=== PATIENT | male | born 2000 | race Caucasian/White ===

== ENCOUNTER → 2022-10-12 13:32 | Outpatient (BNVA) | payer MEDICAID, SELFPAY | PROVIDERS: PCP Family Medicine; Visit Provider Family Medicine | DX: F29 Unspecified psychosis not due to a substance or known physiological condition (principal); F31.9 Bipolar disorder, unspecified | CPT/HCPCS: 80053; 80061; 84443; 85025 ==

== ENCOUNTER 2024-07-25 18:39 | Inpatient (IN) | payer SELFPAY ==
[2024-07-25 18:42] VITALS: BP 157/75; PULSE 106; RESP 18; TEMP 36.8; O2SAT 98; BMI 30.7
--- NOTE | 2024-07-25 18:46 | ED.C_ITS ---
HPI - Psych 2 General: Chief Complaint: Psychiatric Symptoms Stated Complaint: 96 Time Seen by Provider: 07/25/24 18:42 History of Present Illness: 24-year-old male who presents the emerge ncy room with police on a 96-hour hold. According to oliva he was diagnosed recently with paranoid schizophrenia. He had been admitted at some point and a mental hospital in [facility]. He is been living with his grandparents since December 2021. They feel like his mental health has declined recently. They say never comes out of his room and he has bouts of yelling and screaming and threatening. These can last for hours. He said he has been hearing voices and talking to himself. When I asked him he says none of this is true. He says he was hoping to go home today. I discussed with him that he will need to stay he is completely fine with that. Related Data Previous Rx's Medication Instructions Recorded benztropine 1 mg tablet 1 mg PO BID #60 tabs 10/12/22 olanzapine 15 mg tablet 15 mg PO BID #60 tabs 10/12/22 risperidone 3 mg tablet (Risperdal) 3 mg PO BID #60 tabs 10/12/22 trazodone 150 mg tablet See Rx Instructions .Route 03/26/23 .COMPLEX #30 tabs Allergies Allergy/AdvReac Type Severity Reaction Status Date / Time No Known Allergies Allergy Verified 10/12/22 10:33 Review of Systems 2 Narrative: Constitutional symptoms: Negative except as documented in HPI. Skin symptoms: Negative except as documented in HPI. Eye symptoms: Negative except as documented in HPI. ENMT symptoms: Negative except as documented in HPI. Respiratory symptoms: Negative except as documented in HPI. Cardiovascular symptoms: Negative except as documented in HPI. Gastrointestinal symptoms: Negative except as documented in HPI. Genitourinary symptoms: Negative except as documented in HPI. Musculoskeletal symptoms: Negative except as documented in HPI. Neurologic symptoms: Negative except as documented in HPI. Psychiatric symptoms: Negative except as documented in HPI. Endocrine symptoms: Negative except as documented in HPI. PFSH ED 2 PFSH: Medical History (Updated 07/25/24 @ 19:58 by Becca Pope MD) Psychiatric disorder Bipolar 1 disorder Surgical History (Updated 10/12/22 @ 11:08 by Didi Bryant MD) No pertinent past surgical history Family History Family/Other Cancer CAD (coronary artery disease) Diabetes Stroke Psychiatric illness Mother Psychiatric illness Denies family history of Clotting disorder Bleeding disorder Social History Smoking and tobacco/nicotine status: current every day tobacco/nicotine user cigarettes Packs smoked per day: 1.5 Years cigarettes smoked: 5 Second hand smoke exposure: Yes Alcohol intake: never Substance/Drug Use: current Substance/Drug use frequency: daily Adopted: No Caregiver/support person: Yes Lives independently: No Household members: family Marital status: Single Highest education level completed: 11th Grade service: No Current occupational status: unemployed Current gender identity: Male Special brian needs: No Agree to transfusion: Yes Physical Exam 2 Narrative: EXAM NARRATIVE: General: Alert, no acute distress. Skin: Warm, dry. Head: Normocephalic, atraumatic. Neck: Supple, trachea midline. Eye: Extraocular movements are intact. Ears, nose, mouth and throat: mucosa moist. Cardiovascular: Regular, Normal peripheral perfusion. Respiratory: Lungs are clear to auscultation, respirations are non-labored, breath sounds are equal, Symmetrical chest wall expansion. Gastrointestinal: Soft, Nontender, Non distended Musculoskeletal: Normal ROM, no deformity. Neurological: Alert and oriented, No focal neurological deficit observed. Psychiatric: Cooperative, appropriate mood & affect. Course 2 Vital Signs: Vital signs: Vital Signs Temperature 98.3 F 07/25/24 18:42 Pulse Rate 106 H 07/25/24 18:42 Respiratory Rate 18 07/25/24 18:42 Blood Pressure 157/75 07/25/24 18:42 Pulse Oximetry 98 07/25/24 18:42 Oxygen Delivery Me thod Room Air 07/25/24 18:42 MDM - Psych Medical Decision Making Medical decision making: Differential diagnosis for patient with reported psychosis with plan for psychiatric admission including but not limited to and based on the above HPI, review of systems and physical exam: concerns for infection, alcohol intoxication, cardiac issues or other medical problems prior to psychiatric admission. Orders placed to evaluate differential diagnosis based on the above differential, HPI and physical exam labwork, ekg ordered to evaluate the pathologies and to clear the patient medically prior to psychiatric admission EKG: Time 1907. Rate 87. Normal sinus rhythm, No ST-T changes, no ectopy, normal MT & QRS intervals, This was reviewed and interpreted by myself the ER physician at 1910 Lab Review: Laboratory results were reviewed and interpreted by myself the emergency room physician. - Medically cleared. - EKG shows no ischemic changes. - Blood alcohol level is negative, as well as salicylate and Tylenol. -Urinalysis and drug screen are pending - No anemia. - BUN and creatinine are within normal limits. I reviewed the patient's medical record. Consultation: I spoke with Dr. Lazo is on-call for psychiatry and agrees to admission. Assessment and plan: Psychosis -Admission to neuropsychiatric unit for continued evaluation and treatment. - All lab work was reviewed and interpreted personally by myself, the ER physician - Evaluation and treatment of this problem were appropriate in the emergency setting Lab Data 07/25/24 18:54 07/25/24 18:54 Laboratory Results WBC 8.74 10^3/uL (3.29-11.43) 07/25/24 18:54 RBC 5.69 10^6/uL (3.85-5.65) H 07/25/24 18:54 Hgb 16.70 g/dL (11.27-16.99) 07/25/24 18:54 Hct 49.9 % (37-53) 07/25/24 18:54 MCV 87.7 fl (82-101) 07/25/24 18:54 MCH 29.3 pg (27-33) 07/25/24 18:54 MCHC 33.5 g/dL (30-55) 07/25/24 18:54 RDW 11.4 % (12.1-15.1) L 07/25/24 18:54 Plt Count 314 10^3/cmm (157-399) 07/25/24 18:54 MPV 9.6 fL (7.4-10.4) 07/25/24 18:54 Neut % (Auto) 73.2 % 07/25/24 18:54 Lymph % (Auto) 18.8 % 07/25/24 18:54 Rincon % (Auto) 6.6 % 07/25/24 18:54 Eos % (Auto) 0.5 % 07/25/24 18:54 Baso % (Auto) 0.6 % 07/25/24 18:54 Neut # (Auto) 6.40 10^3/uL (1.8-7.7) 07/25/24 18:54 Lymph # (Auto) 1.6 10^3/uL (0.8-4.8) 07/25/24 18:54 Rincon # (Auto) 0.6 10^3/uL (0.2-0.9) 07/25/24 18:54 Eos # (Auto) 0.0 10^3/uL (0.0-0.8) 07/25/24 18:54 Baso # (Auto) 0.1 10^3/uL (0.0-0.1) 07/25/24 18:54 Nucleated RBC % (auto) 0 % 07/25/24 18:54 Nucleated RBCs # 0.0 /100WBC 07/25/24 18:54 Sodium 140 mmol/L (136-145) 07/25/24 18:54 Potassium 3.5 mmol/L (3.5-5.1) 07/25/24 18:54 Chloride 100 mmol/L (98-107) 07/25/24 18:54 Carbon Dioxide 25 mmol/L (22-29) 07/25/24 18:54 Anion Gap 18.5 (5-19) 07/25/24 18:54 BUN 8 mg/dL (6-20) 07/25/24 18:54 Creatinine 0.9 mg/dL (0.7-1.2) 07/25/24 18:54 GFR Calculation 105.5 mL/min (90-130) 07/25/24 18:54 Glucose 105 mg/dL (65-115) 07/25/24 18:54 Calculated Osmolality 289 mOsm/kg (285-295) 07/25/24 18:54 Calcium 9.9 mg/dL (8.5-10.5) 07/25/24 18:54 Total Bilirubin 0.5 mg/dL (0.15-1.2) 07/25/24 18:54 AST 25 U/L (0-40) 07/25/24 18:54 ALT 20 U/L (0-41) 07/25/24 18:54 Alkaline Phosphatase 85 U/L (40-130) 07/25/24 18:54 Total Protein 8.0 g/dL (6.6-8.7) 07/25/24 18:54 Albumin 5.0 g/dL (3.5-5.2) 07/25/24 18:54 Globulin 3.0 g/dL (1.3-4.6) 07/25/24 18:54 TSH 0.94 uIU/mL (0.27-4.20) 07/25/24 18:54 Salicylates < 0.3 mg/dL (3-10) L 07/25/24 18:54 Acetaminophen < 5.0 ug/mL (10-30) L 07/25/24 18:54 Ethyl Alcohol < 10 mg/dL (0-10) 07/25/24 18:54 All radiology interpretation(s) finalized by discharge Discharge Plan Discharge Patient Disposition: Admitted As Inpatient Clinical Impression: Acute psychosis Condition: Stable Coding Level of Care Code ED Brine Maker for Chris Stewart
--- NOTE | 2024-07-25 18:46 | ECG_ITS ---
[employer] Test Date: 2024-07-25 Pat Name: Darion Nobles Department: Room: Gender: Male [employer] Supervisor: : 2000 Requested By: Becca Beverly Order Number: [id number] Bonilla MD: Jackson Leonardo M.D. Measurements Intervals Ryde Rate: 87 P: 67 DC: 156 QRS: 39 QRSD: 102 T: 46 QT: 352 QTc: 425 Interpretive Statements SINUS RHYTHM WITH SINUS ARRHYTHMIA INCOMPLETE RIGHT BUNDLE BRANCH BLOCK [90+ ms QRS DURATION, TERMINAL R IN V1/V2, 40+ ms S IN I/aVL/V4/V5/V6] No previous ECG available for comparison Electronically Signed On 07-26-2024 10:20:11 DISTRIBUTION SALES REPRESENTATIVE by Jackson Leonardo M.D. [email or web address]
[2024-07-25 19:07] LABS: Basophils # 0.1 10^3/uL (0.0-0.1); Basophils % 0.6 %; Eosinophils % 0.5 %; Hematocrit 49.9 % (37-53); Lymphocytes # 1.6 10^3/uL (0.8-4.8); Lymphocytes % 18.8 %; Mean Corpuscular HGB Conc 33.5 g/dL (30-55); Mean Corpuscular Hemoglobin 29.3 pg (27-33); Mean Corpuscular Volume 87.7 fl (82-101); Mean Platelet Volume 9.6 fL (7.4-10.4); Monocytes # 0.6 10^3/uL (0.2-0.9); Monocytes % 6.6 %; Neutrophils % 73.2 %; Nucleated Red Blood Cells % 0 %; Platelet Count 314 10^3/cmm (157-399); Red Blood Count 5.69 10^6/uL (3.85-5.65); Red Cell Distribution Width 11.4 % (12.1-15.1); White Blood Count 8.74 10^3/uL (3.29-11.43)
--- NOTE | 2024-07-25 19:15 | PC.NURSE ---
96 hour hold rights read to patient. Stefan from security present during reading of rights. Patient verbalized understandings and copy of rights given to patient.
[2024-07-25 19:57] LABS: Acetaminophen < 5.0 ug/mL (10-30); Alanine Aminotransferase 20 U/L (0-41); Alcohol Level < 10 mg/dL (0-10); Alkaline Phosphatase 85 U/L (40-130); Anion Gap 18.5 (5-19); Aspartate Amino Transferase 25 U/L (0-40); Blood Urea Nitrogen 8 mg/dL (6-20); Calcium 9.9 mg/dL (8.5-10.5); Carbon Dioxide 25 mmol/L (22-29); Chloride 100 mmol/L (98-107); Creatinine Clr Calc Pharmacy 154.9588; Glomerular Filtration Rate 105.5 mL/min (90-130); Glucose 105 mg/dL (65-115); Osmolality Calculated 289 mOsm/kg (285-295); Potassium 3.5 mmol/L (3.5-5.1); Salicylate < 0.3 mg/dL (3-10); Sodium 140 mmol/L (136-145); Thyroid Stimulating Hormone 0.94 uIU/mL (0.27-4.20); Total Bilirubin 0.5 mg/dL (0.15-1.2)
[2024-07-25 20:32] VITALS: BP 151/79; PULSE 77; RESP 16; O2SAT 97
[2024-07-25 21:06] VITALS: BP 150/87; PULSE 82; RESP 18; TEMP 37.2; O2SAT 100
[2024-07-25] MEDS: nicotine 2 mg Gum BUCCAL (21:23)
[2024-07-25 21:50] LABS: Bilirubin Urine Negative (Negative); Blood Urine Negative (Negative); Glucose Urine UA Negative (Normal); Ketones Urine 1+ (Negative); Leukocyte Esterase Urine Negative (Negative); Nitrate Urine Negative (Negative); Protein Urine Negative (Negative); Specific Gravity, Urine 1.005 (1.005-1.030); Urine Appearance Clear (CLEAR); Urine Color Yellow (Yellow); Urobilinogen Urine 0.2 mg/dL (Negative)
[2024-07-25 21:52] LABS: Bacteria Urine None Seen /hpf; Hyaline Casts Urine 0-4 /lpf; RBC Urine 0-2 /hpf (0-2); Squamous Epithelial Cell Urine 0-5 /hpf (0-5); WBC Urine 0-5 /hpf (0-5)
[2024-07-25 22:00] VITALS: BP 150/87; PULSE 82; RESP 18; TEMP 37.2; O2SAT 100
[2024-07-25 22:03] LABS: Amphetamines Screen Urine Negative (Negative); Barbiturates Screen Urine Negative (Negative); Benzodiazepines Screen Urine Negative (Negative); Cocaine Screen Urine Negative (Negative); Opiate Screen Urine Negative (Negative); PCP Screen Urine Negative (Negative); THC Screen Urine Negative (Negative)
[2024-07-25] MEDS: trazodone 50 mg Tablet PO (22:03)
[2024-07-26 06:00] VITALS: BP 136/83; PULSE 63; RESP 18; TEMP 36.7; O2SAT 97
[2024-07-26] MEDS: nicotine 2 mg Gum BUCCAL (11:34)
--- NOTE | 2024-07-26 12:54 | W.PM.NPUH&PS ---
Providers/Chief Complaint Admitting Physician: Samy Lazo MD Primary Care Provider: Didi Bryant MD Chief Complaint: 96 HPI NPU History of Present Illness Darion Nobles is a 24 year old male who presented to the emergency department accompanied by police after he had been placed on a 96-hour hold. The patient was admitted to the neuropsychiatric unit for further evaluation and treatment. The patient had reported that on 07/23/2024 he had gone out and wanted to go to [facility] to get some alcohol. He had reported that he had gone there and his grandmother whom he lives with had disagreed with the idea that he drink alcohol and informed staff there that he was not to receive alcohol. The patient had reported that he came home angry afterwards and isolated himself in his room while allegedly screaming and engaging in some angry outburst in his room. The patient had reported that he had punched his door. He states that he had spent the next 2 days isolating himself and keeping away from his grandmother but reported that on Sunday the police had come to the home and presented with an affidavit stating that the patient was ordered to be evaluated in a psychiatric facility. The patient had endorsed a history of anurag as well as a history of schizophrenia. He reports that he had been previously admitted to a long-term psychiatric facility in [facility] but reports that he has not seen a psychiatrist in the over a year since moving here from [place]. The patient had reported that he had a physician recently renew his medications but states that he has been noncompliant with the combination of his medications. He reported currently not having thoughts of hurting himself or others. 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 He had reported that he was here to be calm and asked if he could go home today but understood that he may need to stay for a few days. He had reported that he did not wish to be placed on Zyprexa that had previously been prescribed as he stated that it had made him feel worse. Patient denied any racing thoughts. He reports that he often struggles with being in large crowds and stated that at previous times in his life when he has attempted to work that he had struggled with engaging with other peers and strangers. He had reported at times feeling as if other people were attempting to invade his privacy. The patient had stated that he has had no overall change in appetite. He reports no current change in motivation or energy. He denies having any current sleep continuity disruption. He did at times say that he has been hearing voices but reported that the voices were not interfering with his functioning currently. He was unwilling to discuss what the voices particularly said to him. He reports the voices as being intermittent. Patient denied any drug or alcohol use on admission today. Psychiatric history: The patient has reported previous inpatient hospitalizations 1 occurring he states when he was in an childhood. He had also reported a 4-month stay at [facility] in [facility] where he states he had been started on multiple psychotropic medications. He had reported no current outpatient psychiatric treatment at this time. Previous medications reported included trazodone 150 mg at night, Risperdal 3 mg twice a day, olanzapine 15 mg twice a day, and benzatropine 1 mg twice a day. Substance abuse history: Patient had reported occasional alcohol use. He reports no history of stimulant or opiate use. He had reported no history of inpatient or outpatient substance abuse treatment. He reports currently using nicotine on a daily basis and denied any use of marijuana at this time. Medical history: None reported Surgical history: None Allergies: No known drug allergies Current medications: None (patient had been on Cogentin, olanzapine, Risperdal, and trazodone in the past 6 months.) Family psychiatric history: Patient reports his maternal great aunt and mother had been diagnosed with bipolar disorder. Legal history: None reported. The patient is currently not on probation. Social history: The patient was born in [facility]. He reports that he was raised by his mother and stated having limited contact with his biological father as his parents were not . He has 1 full sister and 2 half sisters. He had reported no history of sexual physical or emotional abuse. He had stated that he had attended high school but dropped out in the 11th grade for unspecified reasons. He states he has never been and has no children. He had reported struggling with maintaining a job and states that he is on Social Security disability as well. He had endorsed a history of homelessness and stated that he moved to [place] approximately 1 year ago and is currently living with his maternal grandmother in [place] for the last few years with his grandfather as well. He had reported having interest in playing video games. He reports no history of learning disability. Meds NPU Home Medications Medication Instructions Recorded Confirmed Last Taken Type trazodone 150 mg tablet 150 mg PO BEDTIME sleep 07/25/24 07/25/24 Unknown History Allergies Allergy/AdvReac Type Severity Reaction Status Date / Time No Known Allergies Allergy Verified 10/12/22 10:33 PFSH NPU PFSH: Medical History (Updated 07/26/24 @ 13:11 by Samy Lazo MD) Psychiatric disorder Bipolar 1 disorder Surgical History (Updated 10/12/22 @ 11:08 by Didi Bryant MD) No pertinent past surgical history Family History Family/Other Cancer CAD (coronary artery disease) Diabetes Stroke Psychiatric illness Mother Psychiatric illness Denies family history of Clotting disorder Bleeding disorder Social History Smoking and tobacco/nicotine status: current every day tobacco/nicotine user cigarettes Packs smoked per day: 1.5 Years cigarettes smoked: 5 Second hand smoke exposure: Yes Alcohol intake: never Substance/Drug Use: current Substance/Drug use frequency: daily Adopted: No Caregiver/support person: Yes Lives independently: No Household members: family Marital status: Single Highest education level completed: 11th Grade service: No Current occupational status: unemployed Current gender identity: Male Special brian needs: No Agree to transfusion: Yes Mental Status Exam MSE Comments: He is a casually dressed healthy male who appeared slightly guarded on interview but overall was fairly pleasant. His speech was careful with normal rate rhythm and prosody noted. There was no evidence of any abnormal involuntary motor movements, tics, or tremors appreciated. His mood was described as all right. His affect appeared blunted. His thought process was linear and logical. His thought content showed no evidence of homicidal or suicidal ideation. He did not appear to be responding to internal stimuli. There was some evidence of ideas of reference and some paranoia noted although no overt delusions were appreciated. He had endorsed a history of auditory hallucinations and denied any visual hallucinations. He did not appear to be actively responding to internal stimuli. He was alert and oriented to person, place, time, and situation. His recent and remote memory appeared grossly intact. His insight was limited. His judgment was poor. His impulse control appeared guarded. Vitals/I&O/Wt Last Vital Signs Temp 98.1 F 07/26/24 06:00 Pulse 63 07/26/24 06:00 Resp 18 07/26/24 06:00 BP 136/83 07/26/24 06:00 Pulse Ox 97 07/26/24 06:00 O2 Del Method Room Air 07/25/24 21:09 Weight last 48 hrs Weight 99.79 kg Data NPU 07/25/24 18:54 07/25/24 18:54 A&P Assessment and plan (1) Acute psychosis: (2) Schizophrenia, paranoid type: Plan 24-year-old male involuntarily hospitalized with a likely history of schizoaffective disorder bipolar type or schizophrenia currently noncompliant with previous medication regiment admitted involuntarily due to increased agitation and paranoia apparently at the home environment. Patient would likely benefit from continued inpatient hospitalization at this time. #1.? Engage patient in individual milieu and group therapy. #2?? Recommend sober living treatment at the highest level of care to which the patient is willing to commit #3??? Patient agreeable to restart trazodone and risperidone. #4?? TO-15 minute checks? #5?? Will attempt to gather collateral information from family. Continue to monitor patient on 96 hour hold. Involuntary Hold Information 96 Hour Hold: 96 Hour Involuntary Admission: Yes 96 Hour Hold Ending Date: 08/04/24 96 Hour Hold Ending Time: 18:45 Other Hold: Hold End Date: 08/04/24 Attestations NPU Medical Necessity Statement*: Inpatient hospitalization is medically necessary and deemed to ?be ?the clinically appropriate intervention ?at this time.? We will monitor/initiate medications and make changes as indicated.? The patient will be in the hospital for over 2 midnights.? The patient?s likely length of stay 7-10 days. Coding Level of Care Code Acute Code for [facility] Fwd Diagnoses Acute psychosis F23 Schizophrenia, paranoid type F20.0
[2024-07-26 14:00] VITALS: BP 153/98; PULSE 106; RESP 18; O2SAT 97
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
[2024-07-26 19:57] VITALS: BP 119/63; PULSE 63; RESP 18; TEMP 36.9; O2SAT 99
[2024-07-26] MEDS: trazodone 100 mg Tablet PO (20:05)
[2024-07-26] MEDS: trazodone 50 mg Tablet PO (20:05)
[2024-07-26] MEDS: risperiDONE 2 mg Tablet PO (20:05)
[2024-07-27 06:00] VITALS: BP 113/71; PULSE 85; RESP 18; TEMP 36.6; O2SAT 98
--- NOTE | 2024-07-27 13:29 | P.NPUPN_ITS ---
Subjective NPU 2 Subjective: 24-year-old male with a history of schiz ophrenia who had been without his medications admitted involuntarily for increased agitation in the home environment. The patient was calm and cooperative on the unit. He had isolated himself. He had been agreeable to restarting 1 medication and Risperdal was reinitiated along with trazodone. He reported adequate sleep. He reported no side effects from his medication regimen. He had reported that he typically had struggles with trusting others. He had reported having problems with feeling controlled. He had stated that he would go back to living with one of his friends if he were not allowed back home with his grandmother at this time. Mental Status Exam 2 MSE Comments: He is a casually dressed healthy male who appeared slightly guarded on interview but overall was fairly pleasant. His speech was careful with normal rate rhythm and prosody noted. There was no evidence of any abnormal involuntary motor movements, tics, or tremors appreciated. His mood was described as all right. His affect appeared blunted. His thought process was linear and logical. His thought content showed no evidence of homicidal or suicidal ideation. He did not appear to be responding to internal stimuli. There was mild paranoia noted and distrust but no overt delusional thinking. He had endorsed a history of auditory hallucinations and denied any visual hallucinations. He did not appear to be actively responding to internal stimuli. He was alert and oriented to person, place, time, and situation. His recent and remote memory appeared grossly intact. His insight was limited. His judgment was poor. His impulse control appeared guarded. Vitals/I&O/Wt Last Vital Signs Temp 97.9 F 07/27/24 06:00 Pulse 85 07/27/24 06:00 Resp 18 07/27/24 06:00 BP 113/71 07/27/24 06:00 Pulse Ox 98 07/27/24 06:00 O2 Del Method Room Air 07/26/24 14:00 07/26/24 07/27/24 07/27/24 22:59 06:59 14:59 Intake Total 0 / 0 Balance 0 / 0 Weight last 48 hrs Weight 95.436 kg Weight 99.79 kg Data NPU 07/25/24 18:54 07/25/24 18:54 A&P Assessment and plan (1) Acute psychosis: (2) Schizophrenia, paranoid type: Plan 24-year-old male involuntarily hospitalized with a likely history of schizoaffective disorder bipolar type or schizophrenia currently noncompliant with previous medication regiment admitted involuntarily due to increased agitation and paranoia apparently at the home environment. Patient would likely benefit from continued inpatient hospitalization at this time. #1.? Engage patient in individual milieu and group therapy. #2?? Recommend sober living treatment at the highest level of care to which the patient is willing to commit #3???Continue trazodone 100mg at night and risperidone 2mg at night #4?? TO-15 minute checks? #5?? Will attempt to gather collateral information from family. Continue to monitor patient on 96 hour hold. Involuntary Hold Information 2 96 Hour Hold: 96 Hour Involuntary Admission: Yes 96 Hour Hold Ending Date: 08/04/24 96 Hour Hold Ending Time: 18:45 Other Hold: Hold End Date: 08/04/24 Attestations NPU 2 Medical Necessity Statement*: Inpatient hospitalization is medically necessary and deemed to ?be ?the clinically appropriate intervention ?at this time.? We will monitor/initiate medications and make changes as indicated.? The patient?s likely length of stay 3-4 days. Coding Level of Care Code Acute Code for [facility] Fwd Diagnoses Acute psychosis F23 Schizophrenia, paranoid type F20.0
[2024-07-27 14:00] VITALS: BP 113/59; PULSE 73; RESP 16; TEMP 36.9; O2SAT 97
[2024-07-27] MEDS: nicotine 2 mg Gum BUCCAL ×3 (15:08→20:07)
[2024-07-27] MEDS: trazodone 100 mg Tablet PO (20:07)
[2024-07-27] MEDS: risperiDONE 2 mg Tablet PO (20:07)
[2024-07-27 20:18] VITALS: BP 124/76; PULSE 80; RESP 18; TEMP 36.7; O2SAT 99
[2024-07-28 06:00] VITALS: BP 108/61; PULSE 84; RESP 17; TEMP 36.6; O2SAT 98
[2024-07-28] MEDS: nicotine 2 mg Gum BUCCAL ×2 (11:08→14:25)
[2024-07-28 14:00] VITALS: BP 109/67; PULSE 92; RESP 16; TEMP 36.6; O2SAT 98
--- NOTE | 2024-07-28 14:41 | W.PM.NPUDCS ---
Diagnoses at Discharge Discharge Diagnosis (1) Acute psychosis: Status: Acute (2) Schizophrenia, paranoid type: Status: Acute Reason for Visit Reason for Visit: 96 Brief History: History of Present Illness Darion Nobles is a 24 year old male who presented to the emergency department accompanied by police after he had been placed on a 96-hour hold. The patient was admitted to the neuropsychiatric unit for further evaluation and treatment. The patient had reported that on 07/23/2024 he had gone out and wanted to go to [facility] to get some alcohol. He had reported that he had gone there and his grandmother whom he lives with had disagreed with the idea that he drink alcohol and informed staff there that he was not to receive alcohol. The patient had reported that he came home angry afterwards and isolated himself in his room while allegedly screaming and engaging in some angry outburst in his room. The patient had reported that he had punched his door. He states that he had spent the next 2 days isolating himself and keeping away from his grandmother but reported that on Sunday the police had come to the home and presented with an affidavit stating that the patient was ordered to be evaluated in a psychiatric facility. The patient had endorsed a history of anurag as well as a history of schizophrenia. He reports that he had been previously admitted to a long-term psychiatric facility in [facility] but reports that he has not seen a psychiatrist in the over a year since moving here from [place]. The patient had reported that he had a physician recently renew his medications but states that he has been noncompliant with the combination of his medications. He reported currently not having thoughts of hurting himself or others. 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 He had reported that he was here to be calm and asked if he could go home today but understood that he may need to stay for a few days. He had reported that he did not wish to be placed on Zyprexa that had previously been prescribed as he stated that it had made him feel worse. Patient denied any racing thoughts. He reports that he often struggles with being in large crowds and stated that at previous times in his life when he has attempted to work that he had struggled with engaging with other peers and strangers. He had reported at times feeling as if other people were attempting to invade his privacy. The patient had stated that he has had no overall change in appetite. He reports no current change in motivation or energy. He denies having any current sleep continuity disruption. He did at times say that he has been hearing voices but reported that the voices were not interfering with his functioning currently. He was unwilling to discuss what the voices particularly said to him. He reports the voices as being intermittent. Patient denied any drug or alcohol use on admission today. Psychiatric history: The patient has reported previous inpatient hospitalizations 1 occurring he states when he was in an childhood. He had also reported a 4-month stay at [facility] in [facility] where he states he had been started on multiple psychotropic medications. He had reported no current outpatient psychiatric treatment at this time. Previous medications reported included trazodone 150 mg at night, Risperdal 3 mg twice a day, olanzapine 15 mg twice a day, and benzatropine 1 mg twice a day. Substance abuse history: Patient had reported occasional alcohol use. He reports no history of stimulant or opiate use. He had reported no history of inpatient or outpatient substance abuse treatment. He reports currently using nicotine on a daily basis and denied any use of marijuana at this time. Medical history: None reported Surgical history: None Allergies: No known drug allergies Current medications: None (patient had been on Cogentin, olanzapine, Risperdal, and trazodone in the past 6 months.) Family psychiatric history: Patient reports his maternal great aunt and mother had been diagnosed with bipolar disorder. Legal history: None reported. The patient is currently not on probation. Social history: The patient was born in [facility]. He reports that he was raised by his mother and stated having limited contact with his biological father as his parents were not . He has 1 full sister and 2 half sisters. He had reported no history of sexual physical or emotional abuse. He had stated that he had attended high school but dropped out in the 11th grade for unspecified reasons. He states he has never been and has no children. He had reported struggling with maintaining a job and states that he is on Social Security disability as well. He had endorsed a history of homelessness and stated that he moved to [place] approximately 1 year ago and is currently living with his maternal grandmother in [place] for the last few years with his grandfather as well. He had reported having interest in playing video games. He reports no history of learning disability. Hospital Course Hospital Course During the hospitalization, the patient had routine laboratory studies which were within normal limits except for a few outliers.? Additionally, there was a general medical evaluation which was also within normal limits and revealed no new acute processes.? The patient was agreeable to restarting Risperdal and the medication was titrated to a dose of 3 mg at night prior to discharge. He also was agreeable to taking trazodone to help him for sleep. He appeared in no acute distress and was agreeable to continuing these medications and returning back to his grandmother's place at the time of discharge. At the time of discharge, lethality was denied and psychosis was resolving.? Mood and anxiety were well managed.? The patient endorsed a plan to avoid all drugs of abuse and follow up with the aftercare recommendations of the treatment team.? The patient was evaluated and deemed to be absent credible lethality and had achieved the maximum benefit from an inpatient hospitalization, and so was discharged. ? Involuntary Hold Information 96 Hour Hold: 96 Hour Involuntary Admission: Yes 96 Hour Hold Ending Date: 08/04/24 96 Hour Hold Ending Time: 18:45 Other Hold: Hold End Date: 08/04/24 Mental Status Exam MSE Comments: He is a casually dressed healthy male who appeared slightly guarded on interview but overall was fairly pleasant. His speech was careful with normal rate rhythm and prosody noted. There was no evidence of any abnormal involuntary motor movements, tics, or tremors appreciated. His mood was described as good. His affect appeared brighter at discharge. His thought process was linear and logical. His thought content showed no evidence of homicidal or suicidal ideation. He did not appear to be responding to internal stimuli. There was mild paranoia noted and distrust but no overt delusional thinking. He had endorsed a history of auditory hallucinations and denied any visual hallucinations. He did not appear to be actively responding to internal stimuli. He was alert and oriented to person, place, time, and situation. His recent and remote memory appeared grossly intact. His insight was limited. His judgment was fair. His impulse control appeared fair. Discharge Data Studies Completed and Pending: Laboratory Results WBC 8.74 10^3/uL (3.2 9-11.43) 07/25/24 18:54 RBC 5.69 10^6/uL (3.8 5-5.65) H 07/25/24 18:54 Hgb 16.70 g/dL (11.27 -16.99) 07/25/24 18:54 Hct 49.9 % (37-53) 07/25/24 18:54 MCV 87.7 fl (82-101) 07/25/24 18:54 MCH 29.3 pg (27-33) 07/25/24 18:54 MCHC 33.5 g/dL (30-55) 07/25/24 18:54 RDW 11.4 % (12.1-15.1 ) L 07/25/24 18:54 Plt Count 314 10^3/cmm (157 -399) 07/25/24 18:54 MPV 9.6 fL (7.4-10.4) 07/25/24 18:54 Neut % (Auto) 73.2 % 07/25/24 18:54 Lymph % (Auto) 18.8 % 07/25/24 18:54 [place] % (Auto) 6.6 % 07/25/24 18:54 Eos % (Auto) 0.5 % 07/25/24 18:54 Baso % (Auto) 0.6 % 07/25/24 18:54 Neut # (Auto) 6.40 10^3/uL (1.8 -7.7) 07/25/24 18:54 Lymph # (Auto) 1.6 10^3/uL (0.8- 4.8) 07/25/24 18:54 [place] # (Auto) 0.6 10^3/uL (0.2- 0.9) 07/25/24 18:54 Eos # (Auto) 0.0 10^3/uL (0.0- 0.8) 07/25/24 18:54 Baso # (Auto) 0.1 10^3/uL (0.0- 0.1) 07/25/24 18:54 Nucleated RBC % (a uto) 0 % 07/25/24 18:54 Nucleated RBCs # 0.0 /100WBC 07/25/24 18:54 Sodium 140 mmol/L (136-1 45) 07/25/24 18:54 Potassium 3.5 mmol/L (3.5-5 .1) 07/25/24 18:54 Chloride 100 mmol/L (98-10 7) 07/25/24 18:54 Carbon Dioxide 25 mmol/L (22-29) 07/25/24 18:54 Anion Gap 18.5 (5-19) 07/25/24 18:54 BUN 8 mg/dL (6-20) 07/25/24 18:54 Creatinine 0.9 mg/dL (0.7-1. 2) 07/25/24 18:54 GFR Calculation 105.5 mL/min (90- 130) 07/25/24 18:54 Glucose 105 mg/dL (65-115 ) 07/25/24 18:54 Calculated Osmolal ity 289 mOsm/kg (285- 295) 07/25/24 18:54 Calcium 9.9 mg/dL (8.5-10 .5) 07/25/24 18:54 Total Bilirubin 0.5 mg/dL (0.15-1 .2) 07/25/24 18:54 AST 25 U/L (0-40) 07/25/24 18:54 ALT 20 U/L (0-41) 07/25/24 18:54 Alkaline Phosphata se 85 U/L (40-130) 07/25/24 18:54 Total Protein 8.0 g/dL (6.6-8.7 ) 07/25/24 18:54 Albumin 5.0 g/dL (3.5-5.2 ) 07/25/24 18:54 Globulin 3.0 g/dL (1.3-4.6 ) 07/25/24 18:54 TSH 0.94 uIU/mL (0.27 -4.20) 07/25/24 18:54 Urine Color Yellow (Yellow) 07/25/24 18:53 Urine Appearance Clear (CLEAR) 07/25/24 18:53 Urine pH 6.0 (5-7) 07/25/24 18:53 Ur Specific Gravit y 1.005 (1.005-1.0 30) 07/25/24 18:53 Urine Protein Negative (Negati ve) 07/25/24 18:53 Urine Glucose (UA) Negative (Normal ) 07/25/24 18:53 Urine Ketones 1+ (Negative) H 07/25/24 18:53 Urine Blood Negative (Negati ve) 07/25/24 18:53 Urine Nitrate Negative (Negati ve) 07/25/24 18:53 Urine Bilirubin Negative (Negati ve) 07/25/24 18:53 Urine Urobilinogen 0.2 mg/dL (Negati ve) 07/25/24 18:53 Ur Leukocyte Lillie ase Negative (Negati ve) 07/25/24 18:53 Urine RBC 0-2 /hpf (0-2) 07/25/24 18:53 Urine WBC 0-5 /hpf (0-5) 07/25/24 18:53 Ur Squamous Epith Cells 0-5 /hpf (0-5) 07/25/24 18:53 Amorphous Sediment Not Reportable 07/25/24 18:53 Urine Bacteria None seen /hpf (N ONE) 07/25/24 18:53 Hyaline Casts 0-4 /lpf H 07/25/24 18:53 Salicylates < 0.3 mg/dL (3-10 ) L 07/25/24 18:54 Urine Opiates Scre en Negative ng/mL (N egative) 07/25/24 18:53 Acetaminophen < 5.0 ug/mL (10-3 0) L 07/25/24 18:54 Ur Barbiturates Sc reen Negative ng/mL (N egative) 07/25/24 18:53 Ur Phencyclidine S crn Negative ng/mL (N egative) 07/25/24 18:53 Ur Amphetamines Sc reen Negative ng/mL (N egative) 07/25/24 18:53 U Benzodiazepines Scrn Negative ng/mL (N egative) 07/25/24 18:53 Urine Cocaine Scre en Negative ng/mL (N egative) 07/25/24 18:53 U Marijuana (THC) Screen Negative ng/mL (N egative) 07/25/24 18:53 Ethyl Alcohol < 10 mg/dL (0-10) 07/25/24 18:54 Vitals: Last Vital Signs Temp 98 F 07/28/24 14:00 Pulse 92 07/28/24 14:00 Resp 16 07/28/24 14:00 BP 109/67 07/28/24 14:00 Pulse Ox 98 07/28/24 14:00 O2 Del Method Room Air 07/28/24 14:00 Discharge Plan Discharge Patient Disposition: Home Condition: Stable Prescriptions: New risperidone 2 mg tablet 3 mg PO DAILY Qty: 45 1RF risperidone 2 mg Tablet 3 mg PO BEDTIME 30 Days Qty: 45 1RF trazodone 150 mg Tablet 150 mg PO BEDTIME 30 Days Qty: 30 1RF Changed trazodone 150 mg tablet 150 mg PO BEDTIME 30 Days Qty: 30 1RF Rx Instructions: Take 1 tablet by mouth at bedtime Discharge Orders: Discharge Order (Routine); Ordered 07/28/24 Ordered By: Samy Lazo Referrals: [facility] [Outside] - 07/29/24 12:30 pm (Initial appointment with Kath Colon via Telehealth in the office) Rylie Benedict MD [Staff Physician] - 09/04/24 10:40 am (You will be seen in the [address] [place] [id number]) Discharge Diet: Usual diet Discharge Activity: Resume usual activity Patient Instructions: Opioid Safety Discharge Attestations NPU Time Spent in Discharge Care*: less than 30 min Specific Discharge Activities: Specific discharge activities: educating patient, discussing with rn case mgr/social workers/dc planners and documenting/other paperwork Coding Level of Care Code Acute Code for Chg Fwd Diagnoses Acute psychosis F23 Schizophrenia, paranoid type F20.0
[2024-07-28 15:11] VITALS: BP 109/67; PULSE 92; RESP 16; TEMP 36.6; O2SAT 98
== END 2024-07-28 16:07 | disposition home or self-care (01) | DRG 885 ==
LOC: ER 19:58 → NP 20:18
PROVIDERS: Admitting Provider Psychiatry & Neurology Psychiatry; Emergency Provider Emergency Medicine; PCP Family Medicine; Visit Provider Psychiatry & Neurology Psychiatry
DX: F20.0 Paranoid schizophrenia (principal); T50.916A Underdosing of multiple unspecified drugs, medicaments and biological substances, initial encounter; F17.210 Nicotine dependence, cigarettes, uncomplicated; F31.9 Bipolar disorder, unspecified; Z91.128 Patient's intentional underdosing of medication regimen for other reason; Z81.8 Family history of other mental and behavioral disorders
CPT/HCPCS: 36415; 80053; 80306; 80307; 81001; 84443; 85025; 93005; 97165; 99285